=== PATIENT | male | born 1955 | race Caucasian/White ===

== ENCOUNTER → 2020-10-22 09:35 | Outpatient (CLI) | payer OTHER, SELFPAY ==
[2020-10-22 14:30] LABS: COVID19 -Nasal RAPID Negative (Negative)
== END ==
PROVIDERS: Visit Provider Physician Assistant
DX: Z20.822 Contact with and (suspected) exposure to COVID-19 (principal)
CPT/HCPCS: 87635

== ENCOUNTER 2020-10-25 06:26 | Day surgery (SDC) | payer OTHER, SELFPAY ==
[2020-10-25 07:01] VITALS: BP 105/61; PULSE 48; RESP 13; TEMP 36.5; O2SAT 99; BMI 22.9
[2020-10-25] MEDS: PROPARACAINE 0.5% OPHTH SOL 2 DROPS EYE-OP (07:30)
--- NOTE | 2020-10-25 07:37 | PM.PREOP ---
Pre-operative Note Interval Note History & Physical reviewed/Exam performed by Physician: Yes Changes to H&P: No
--- NOTE | 2020-10-25 07:37 | PM.OP.1 ---
Operative Date/Time/Diagnoses Pre-op diagnosis: Nuclear cataract right eye Procedure & Clinicians Procedure: Cataract Surgery Same procedure as scheduled: Yes Surgeon: Nathanael Medellin Anesthesia Type: MAC +/- and Sedation Operative Notes Procedure in detail: Patient brought to the operating suite. Tetracaine drops placed in the right eye. Marking instrument was used to jose f the vertical and horizontal meridians. Patient was prepped and draped in sterile manner. Wire lid speculum was placed in the eye. Betadine drops were placed on the eye. This was irrigated. Lidocaine jelly was placed on the eye. A paracentesis port was created with a side-port blade. 0.1 mL 1% preservative free lidocaine was injected into the anterior chamber. The anterior chamber was deepened with viscoelastic. 2.6 mm keratome was used to create a temporal clear corneal incision. Cystotome and Utrata forceps were used to create continuous tear capsulorrhexis. Balanced salt solution was used to hydro dissect the nucleus. The phacoemulsification handpiece was inserted and the nucleus was removed using the stop and chop technique. The irrigation aspiration handpiece was inserted and the remaining cortex was removed. Anterior chamber was deepened with viscoelastic. An Key [id number] intraocular lens with a power of 21.0 was injected into the capsular bag. Irrigation aspiration handpiece was inserted and the remaining viscoelastic was removed. The lens was rotated to the 180 degree meridian. Incision was hydrated with balanced salt solution and found to be leak free with pressure with Weck-Lynn sponges. 0.1 mL Vigamox injected anterior chamber. 0.3 mL Kenalog 10 mg was injected subconjunctivally. Lid speculum was removed. The patient left the operating room in excellent condition. Complications: none Post-operative Condition: stable Disposition: same day surgery
[2020-10-25] MEDS: CATARACT EYE COMPOUND (10 DROPS/SYRINGE) 3 DROPS EYE-OP (07:49)
[2020-10-25] MEDS: PHENYLEPHRINE/LIDOCAINE VIAL (OR) 0.2 ML EYE-OP (07:51)
[2020-10-25] MEDS: MOXIFLOXACIN INJ 5 MG/ML VIAL EYE-OP (07:52)
[2020-10-25] MEDS: CHONDROIDTIN/SOD HYALURONATE 1.05 ML SYRINGE INTRAOCULA (07:52)
[2020-10-25] MEDS: TRIAMCINOLONE 50 MG/5 ML VIAL INJ (07:52)
[2020-10-25] MEDS: LIDOCAINE JELLY 2% 5 ML 1 APPLIC TOP (07:53)
[2020-10-25] MEDS: BALANCED SALT IRRIG SOLN NO.2 500 ML, EPINEPHrine 1 MG IRR (07:54)
[2020-10-25] MEDS: TETRACAINE 0.5% OPHTH DROPS 4 ML 2 DROPS EYE-OP (07:54)
[2020-10-25 08:10] VITALS: BP 99/45; PULSE 60; RESP 13; TEMP 36.9; O2SAT 98
== END 2020-10-25 08:25 | disposition home or self-care (01) ==
PROVIDERS: Referring Provider Ophthalmology; Visit Provider Ophthalmology
PROC: (CPT 66984; principal; 2020-10-25 07:45)
DX: H25.11 Age-related nuclear cataract, right eye (principal); I10 Essential (primary) hypertension; F41.9 Anxiety disorder, unspecified
CPT/HCPCS: 66984; J0171; J2250; J3010; J3301; V2788

== ENCOUNTER → 2020-10-25 16:01 | Outpatient (CLI) | payer OTHER, SELFPAY ==
[2020-10-25] MEDS: COVID-19 VACC #1, MRNA(MOD) 100 MCG/0.5 ML VIAL IM (16:09)
== END ==
PROVIDERS: Visit Provider Internal Medicine
DX: Z23 Encounter for immunization (principal)
CPT/HCPCS: 0011A; 91301

== ENCOUNTER → 2020-11-12 09:04 | Outpatient (CLI) | payer OTHER, SELFPAY ==
[2020-11-12 11:27] LABS: COVID19 -Nasal RAPID Negative (Negative)
== END ==
PROVIDERS: Visit Provider Physician Assistant
DX: Z20.822 Contact with and (suspected) exposure to COVID-19 (principal)
CPT/HCPCS: 87635

== ENCOUNTER 2020-11-15 06:55 | Day surgery (SDC) | payer OTHER, SELFPAY ==
[2020-11-15 07:32] VITALS: BP 92/51; PULSE 51; RESP 13; TEMP 36.6; BMI 22.9
[2020-11-15] MEDS: CATARACT EYE COMPOUND (10 DROPS/SYRINGE) 3 DROPS EYE-OP (07:39)
[2020-11-15] MEDS: PROPARACAINE 0.5% OPHTH SOL 2 DROPS EYE-OP (07:40)
[2020-11-15 07:42] VITALS: BP 90/49
--- NOTE | 2020-11-15 08:29 | P.OP_ITS ---
Operative Date/Time/Diagnoses Pre-op diagnosis: Nuclear Cataract Left eye Post-op diagnosis: same Procedure & Clinicians Same procedure as scheduled: Yes Surgeon: Nathanael Medellin Anesthesia Type: MAC +/- and Sedation Operative Notes Procedure in detail: Patient brought to the operating suite. Tetracaine drops placed in the left eye. Patient was prepped and draped in sterile manner. Wire lid speculum was placed in the eye. Betadine drops were placed on the eye. This was irrigated. Lidocaine jelly was placed on the eye. A paracentesis port was created with a side-port blade. 0.1 mL 1% preservative free lidocaine was injected into the anterior chamber. The anterior chamber was deepened with viscoelastic. 2.6 mm keratome was used to create a temporal clear corneal incision. Cystotome and Utrata forceps were used to create continuous tear capsulorrhexis. Balanced salt solution was used to hydro dissect the nucleus. The phacoemulsification handpiece was inserted and the nucleus was removed using the stop and chop technique. The irrigation aspiration handpiece was inserted and the remaining cortex was removed. Anterior chamber was deepened with viscoe lastic. An Key [id number] intraocular lens with a power of 21.5 was injected into the capsular bag. Irrigation aspiration handpiece was inserted and the remaining viscoelastic was removed. Incision was hydrated with balanced salt solution and found to be leak free with pressure with Weck-Lnyn sponges. 0.1 mL Vigamox injected anterior chamber. 0.3 mL Kenalog 10 mg was injected subconjunctivally. Lid speculum was removed. The patient left the operating room in excellent condition. Complications: none Post-operative Condition: stable Disposition: same day surgery
--- NOTE | 2020-11-15 08:29 | PM.PREOP ---
Pre-operative Note Interval Note History & Physical reviewed/Exam performed by Physician: Yes Changes to H&P: No
[2020-11-15] MEDS: LIDOCAINE 2% (GLYDO) 6 ML GEL TOP (08:40)
[2020-11-15] MEDS: CHONDROIDTIN/SOD HYALURONATE 1.05 ML SYRINGE INTRAOCULA (08:40)
[2020-11-15] MEDS: MOXIFLOXACIN INJ 4 MG/0.8 ML VIAL 0.5 MG EYE-OP (08:40)
[2020-11-15] MEDS: TETRACAINE 0.5% OPHTH DROPS 4 ML 2 DROPS EYE-OP (08:41)
[2020-11-15] MEDS: PHENYLEPHRINE/LIDOCAINE VIAL (OR) 0.2 ML EYE-OP (08:41)
[2020-11-15] MEDS: TRIAMCINOLONE 50 MG/5 ML VIAL INJ (08:41)
[2020-11-15] MEDS: BALANCED SALT IRRIG SOLN NO.2 500 ML, EPINEPHrine 1 MG IRR (08:42)
[2020-11-15 09:05] VITALS: BP 101/50; PULSE 47; RESP 12; TEMP 36.3; O2SAT 100
== END 2020-11-15 09:10 | disposition home or self-care (01) ==
PROVIDERS: PCP Family Medicine; Referring Provider Family Medicine; Visit Provider Ophthalmology
PROC: (CPT 66984; principal; 2020-11-15 08:45)
DX: H25.12 Age-related nuclear cataract, left eye (principal); I10 Essential (primary) hypertension; E78.00 Pure hypercholesterolemia, unspecified; F41.9 Anxiety disorder, unspecified
CPT/HCPCS: 66984; J0171; J2250; J3301; V2788

== ENCOUNTER → 2020-11-23 13:36 | Outpatient (CLI) | payer OTHER, SELFPAY ==
[2020-11-23] MEDS: COVID-19 VACC #2, MRNA(MOD) 100 MCG/0.5 ML VIAL IM (13:42)
== END ==
PROVIDERS: PCP Family Medicine; Visit Provider Internal Medicine
DX: Z23 Encounter for immunization (principal)
CPT/HCPCS: 0012A; 91301

== ENCOUNTER → 2022-05-15 10:44 | Outpatient (CLI) | payer OTHER, SELFPAY ==
--- NOTE | 2022-05-15 | DI.RAD.S_ITS ---
PROCEDURE: FL JOINT INJECTION LARGE LT INDICATIONS: Pain in left hip COMPARISON: None. TECHNIQUE: The indications, alternatives, benefits, risks, and complications of the procedure were explained to the patient. Written informed consent was obtained and placed in the chart. The patient was placed in an appropriate position on the fluoroscopy table, and a site was chosen for percutaneous access under fluoroscopic guidance. The site was prepped and draped in a sterile fashion. Local anesthetic was administered using a 1% lidocaine solution. A hypodermic or spinal needle was then used to access the symptomatic joint. Intra-articular location of the needle tip was confirmed by injecting a small amount of contrast, followed by steroid administration. The needle was then withdrawn, and a bandage applied to the puncture site. FINDINGS: Joint injected: Left hip Medications injected: 4 mL of 40 mg/mL Kenalog and 0.5% Ropivacaine mixture. Patient's pain before injection: 3 out of 10. Patient's pain after injection: 1 out of 10. Complications: None. IMPRESSION: Successful fluoroscopically guided administration of steroid and anaesthetic solution into the left hip joint. Dictated by: Fer Willoughby M.D. on 05/15/2022 at 16:12 Approved by: Fer Willoughby M.D. on 05/15/2022 at 16:13
== END ==
PROVIDERS: PCP Family Medicine; Referring Provider Family Medicine; Visit Provider Family Medicine
DX: M25.552 Pain in left hip (principal)
CPT/HCPCS: 20610

== ENCOUNTER 2025-03-14 12:34 | Observation (INO) | payer MEDICARE, OTHER, SELFPAY ==
[2025-03-14] VITALS (31 sets, daily range): BP systolic 103–155; BP diastolic 59–105; PULSE 59–165; RESP 11–24; TEMP 36.1–37.1; O2SAT 96–99; BMI 23.7
--- NOTE | 2025-03-14 12:46 | EKG_ITS ---
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
--- NOTE | 2025-03-14 12:46 | DI.RAD.S_ITS ---
PROCEDURE: XR CHEST 1V INDICATIONS: a fib TECHNIQUE: One view of the chest was acquired. COMPARISON: None. FINDINGS: Surgical changes and devices: None. Lungs and pleura: Lungs are clear. No pleural effusions or pneumothorax. Mediastinum: Mediastinal contours appear normal. Heart size is normal. Bones and chest wall: No suspicious bony lesions. Overlying soft tissues appear unremarkable. IMPRESSION: No acute cardiopulmonary pathology. Dictated by: Anibal Hewitt M.D. on 03/14/2025 at 13:20 Approved by: Anibal Hewitt M.D. on 03/14/2025 at 13:20
--- NOTE | 2025-03-14 12:47 | ED.ARRPALP ---
HPI - Arrhythmia/Palpitations General Chief Complaint: Arrhythmia/Palpitations Stated Complaint: AFIB Time Seen by Provider: 03/14/25 12:39 Source: patient Mode of arrival: Ambulatory History of Present Illness HPI narrative: 69-year-old gentleman with history of AV node reentry tachycardia and atrial fibrillation post cardiac ablation in 2016, hypertension, hyperlipidemia has been doing well since 2017 and today notes that for the last 3 hours he has been having an irregular heartbeat up to 140 beats per minute with a sense of dizziness and jumping in his heart. He has been otherwise feeling well. He is scheduled for a ?full cardiac workup at the [facility] planning to fly to the clinic this Saturday. His brother of sudden cardiac arrest on August 05, he saw his primary care after that with a stress test ordered to help stratify his risk stratification. He ?failed that?. 2023 he had a low-dose CT scan of his chest for lung cancer screening and there was a mention of multiple coronary calcium appreciated on the CT scan. 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 Follow up was recommended. He preferred to be referred to the [facility] found that they are waiting list was extensive and is now planning to be seen in the [facility]. Aside from the 3 hours of symptoms today he has been otherwise well Related Data Home Medications ?Medication ?Instructions ?Recorded ?Confirmed hydrochlorothiazide 25 mg tablet 25 mg PO DAILY 10/25/20 11/15/20 losartan 50 mg tablet 50 mg PO DAILY 10/25/20 11/15/20 propranolol 80 mg capsule,24 80 mg PO DAILY 10/25/20 11/15/20 hr,extended release simvastatin 20 mg tablet 20 mg PO DAILY 10/25/20 11/15/20 trazodone 100 mg tablet 100 mg PO DAILY 10/25/20 11/15/20 venlafaxine 75 mg capsule,extended 75 mg PO DAILY 10/25/20 11/15/20 release 24 hr Allergies Allergy/AdvReac Type Severity Reaction Status Date / Time meperidine Allergy Unknown Verified 11/15/20 07:31 Penicillins Allergy Unknown Verified 11/15/20 07:31 Review of Systems Review of Systems Narrative: Pertinent positive and negative findings as per HPI Patient History Social History household members: spouse alcohol intake: never Smoking Status: Never smoker Exam Initial Vital Signs Initial Vital Signs: Vital Signs Temperature 97 F L 03/14/25 12:37 Pulse Rate 60 03/14/25 12:37 Respiratory Rate 20 03/14/25 12:37 Blood Pressure 113/62 03/14/25 12:37 Pulse Oximetry 98 03/14/25 12:37 Oxygen Delivery Method Room Air 03/14/25 12:37 General: Healthy appearing, in no acute distress. Able to give a complete and coherent history. Well-nourished well-developed HEENT: Moist mucous membranes, normal sclera with reactive pupils, Respiratory: Full and symmetrical air movement Cardiac: Regular rate and rhythm , variable irregularities on telemetry we will continue to monitor Skin: Warm and dry, no rashes Neurologic: Grossly neurologically intact with no obvious asymmetries or abnormalities Extremities: No trauma, no lower extremity edema Psych: Cooperative, appropriate insight and affect Course Orders Ordered: ED Orders 03/14/25 12:45 Complete Blood Count AUTO DIFF Stat Comprehensive Metabolic Panel Stat 03/14/25 12:46 XR chest 1V Stat Magnesium Stat NT-proBNP (BNP-Adult 18+) Stat Troponin I Stat EKG-12 Lead Stat 03/14/25 12:58 EKG-12 Lead Routine 03/14/25 13:00 EKG-12 Lead Routine 03/14/25 15:58 Trop I [Troponin I] Stat 03/14/25 16:08 Consult to Cardiology Stat Amiodarone HCl/Dextrose (Nexterone) 360 mg in 200 mls @ 33.333 mls/hr IV NOW ONE; Protocol Stop: 03/14/25 19:13 Last Admin: 03/14/25 13:44 Dose: 33.333 mls/hr, 33.33 mls/hr Discontinued Medications Apixaban (Apixaban 5 Mg Tablet) 10 mg PO NOW ONE Stop: 03/14/25 15:41 Last Admin: 03/14/25 15:59 Dose: 10 mg Amiodarone HCl/Dextrose (Nexterone) 150 mg in 100 mls @ 600 mls/hr IV NOW ONE; Protocol Stop: 03/14/25 13:22 Last Infusion: 03/14/25 13:39 Dose: Infused Vital Signs Vital signs: Vital Signs - 8 hr 03/14/25 12:37 03/14/25 12:55 03/14/25 13:04 Temperature 97 F L Pulse Rate 60 157 H Respiratory Rate 20 12 Blood Pressure 113/62 116/71 Pulse Oximetry 98 97 Oxygen Delivery Method Room Air 03/14/25 13:05 03/14/25 13:05 03/14/25 13:11 Temperature Pulse Rate 165 H 156 H Respiratory Rate 13 16 Blood Pressure 121/71 Pulse Oximetry 97 96 Oxygen Delivery Method 03/14/25 13:11 03/14/25 13:16 03/14/25 13:16 Temperature Pulse Rate 148 H Respiratory Rate 14 Blood Pressure 109/79 131/68 Pulse Oximetry 97 Oxygen Delivery Method 03/14/25 13:30 03/14/25 13:32 03/14/25 13:32 Temperature Pulse Rate 143 H 123 H Respiratory Rate 12 15 Blood Pressure 113/76 113/76 Pulse Oximetry 98 98 Oxygen Delivery Method Room Air 03/14/25 13:45 03/14/25 13:46 03/14/25 13:46 Temperature Pulse Rate 132 H 125 H Respiratory Rate 20 17 Blood Pressure 155/79 H Pulse Oximetry 98 98 Oxygen Delivery Method 03/14/25 14:00 03/14/25 14:00 03/14/25 14:15 Temperature Pulse Rate 143 H 130 H Respiratory Rate 16 20 Blood Pressure 109/67 Pulse Oximetry 97 98 Oxygen Delivery Method Room Air 03/14/25 14:16 03/14/25 14:16 03/14/25 14:30 Temperature Pulse Rate 134 H 160 H Respiratory Rate 14 22 Blood Pressure 143/80 H Pulse Oximetry 98 97 Oxygen Delivery Method 03/14/25 14:31 03/14/25 14:31 03/14/25 14:45 Temperature Pulse Rate 151 H 67 Respiratory Rate 22 Blood Pressure 153/105 H Pulse Oximetry 97 98 Oxygen Delivery Method Room Air 03/14/25 14:46 03/14/25 14:46 03/14/25 15:00 Temperature Pulse Rate 69 65 Respiratory Rate 12 Blood Pressure 126/68 Pulse Oximetry 97 97 Oxygen Delivery Method 03/14/25 15:00 Temperature Pulse Rate Respiratory Rate Blood Pressure 111/62 Pulse Oximetry Oxygen Delivery Method MDM - Arrhythmia/Palpitations Lab Data 03/14/25 12:56 03/14/25 12:56 Labs: Lab Results 03/14/25 Range/Units 12:56 WBC 6.5 (4.5-11.0) X10^3/uL RBC 4.31 L (4.5-5.9) X10^6/uL Hgb 13.9 (13.5-17.5) g/dL Hct 39.0 L (41-53) % MCV 90.7 (80-100) fL MCH 32.2 (26-34) PG MCHC 35.5 (30-36) % RDW 13.5 (11.6-14.8) % Plt Count 186 (150-400) X10^3/uL Neut % (Auto) 70.4 (50-75) % Lymph % (Auto) 18.6 L (25-40) % [place] % (Auto) 9.1 (3-14) % Eos % (Auto) 1.3 L (2-4) % Baso % (Auto) 0.6 (0-2) % Neut # (Auto) 4600 (3664-4458) /uL Lymph # (Auto) 1200 (4614-3504) /uL [place] # (Auto) 600 (0-900) /uL Eos # (Auto) 100 (0-450) /uL Baso # (Auto) 0 (0-100) /uL Sodium 138 (137-145) mmol/L Potassium 3.8 (3.4-5.1) mmol/L Chloride 99 (98-107) mmol/L Carbon Dioxide 29 (22-32) mmol/L BUN 14 (9-20) mg/dL Creatinine 0.80 (0.66-1.25) mg/dL Estimated GFR > 60 (>60) mL/min BUN/Creatinine Ratio 17.5 (6-22) Glucose 138 H (70-99) mg/dL Calcium 9.2 (8.4-10.2) mg/dL Magnesium 1.7 (1.6-2.3) mg/dL Total Bilirubin 0.7 (0.2-1.3) mg/dL AST 29 (17-59) IU/L ALT 19 (<50) IU/L Alkaline Phosphatase 42 (38-126) U/L Troponin I < 0.012 (0.01-0.034) ng/mL NT-Pro-B Natriuret Pep 306 H (<125) pg/mL Total Protein 7.5 (6.3-8.2) g/dL Albumin 4.6 (3.5-5.0) g/dL Globulin 2.9 (1.7-4.1) g/dL Albumin/Globulin Ratio 1.6 (1.0-2.8) MDM Narrative Medical decision making narrative: CC: Palpitations x3 hours, cardiac ablation 2017 for atrial fibrillation has had no palpitations since 2017 Complicating co-morbidities: Abnormal stress test in September of this year, coronary calcium appreciated on CT scan from almost a year ago, cardiac evaluation at the [facility] scheduled within the next week Data collected from: patient, son Medical records reviewed: Notes from [facility] are reviewed Differential considered: Paroxysmal AFib, electrolyte abnormality, anxiety, acute coronary syndrome, low risk for pulmonary embolism, electrolyte abnormalities Exam documented above, pertinent findings include: Exam is benign and he is at a rate of 90 Lab Test results independently reviewed as above. Pertinent findings: CBC is unremarkable Chemistries are reassuring Magnesium is appropriate Troponin is ended up BNP is minimally elevated at 306 Independently reviewed EKG: Initial EKG in triage shows sinus rhythm at a rate of 90 with a left bundle branch block. Comparison to EKG in October of this year at [facility] shows he had a baseline left bundle at that point as well At 1:00 p.m. he had an acute rhythm change complains of palpitations but no pain. Of EKG shows wide complex undetermined rhythm ranging from 140-180. Imaging studies independently reviewed: Chest x-ray is unremarkable Consultations: Discussion with Dr Seth regarding rhythm controlling rest of his workup. Agrees with starting amiodarone and continue workup is planned. Discussed with Aleja Encinas, hospitalist. Agrees to hospital admission. Discussed with for inpatient consult. He will see the patient in the morning his recommendation is actually to switch him to 400 mg of amiodarone orally as he has already converted and go ahead and discontinue the drip at this time. Agrees with the apixaban. Recommends echocardiogram in the morning Treatments: amiodorone bolus and drip Re-evaluations: 1300 patient is re-evaluated while in his wide rapid rhythm he is alert, complaining of palpitations but no pain left pressure is stable. 230pm cardioverted to sinus rhythm with amiodarone Discussion: 69-year-old gentleman with episodes of atrial fibrillation, left bundle branch with rapid ventricular response in and out over the course of today. He converted medically with amiodarone. We will convert him to oral amiodarone, start apixaban, we will admit him to the hospital overnight. Currently no evidence of elevated troponin or acute coronary syndrome. Cardiology will consult in the morning did recommend echocardiogram. Patient is updated. Care is reviewed with the hospitalist and all are in agreement with current plan. Discharge Plan Departure Patient Disposition: Admitted as Observation Clinical Impression: Atrial fibrillation with rapid ventricular response
--- NOTE | 2025-03-14 12:58 | EKG_ITS ---
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
--- NOTE | 2025-03-14 13:00 | EKG_ITS ---
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
[2025-03-14 13:05] LABS: Add Manual Diff / Slide Review NO; Hematocrit 39.0 % (41-53); Hemoglobin 13.9 g/dL (13.5-17.5); Lymphocytes Absolute Auto 1200 /uL (1100-4500); Mean Corpuscular HGB Conc 35.5 % (30-36); Mean Corpuscular Hemoglobin 32.2 PG (26-34); Mean Corpuscular Volume 90.7 fL (80-100); Platelet Count 186 X10^3/uL (150-400)
--- NOTE | 2025-03-14 13:15 | PC.NURSE ---
1246 Pt arrived to ED due to heart palpitations and rapid heart rate intermittently x3 hours. Hx of afib and ablation in 2017. States that he is scheduled to have full cardiac workup at [facility] in [place] on 03/18. Denies cp and sob. But states that he feels dizzy with ambulation or movement. VS stable. A&Ox4.
--- NOTE | 2025-03-14 13:18 | PC.NURSE ---
1300 Pt c/o 5/10 substernal cp with rapid HR of 160s. Dr Padron notified of pt status & at bedside. Repeat EKG done.
[2025-03-14] MEDS: AMIODARONE 150 MG/100 ML PIGGYBACK 600 MG IV (13:22)
[2025-03-14 13:23] LABS: Alanine Aminotransferase 19 IU/L (<50); Albumin 4.6 g/dL (3.5-5.0); Albumin Globulin Ratio 1.6 (1.0-2.8); Alkaline Phosphatase 42 U/L (38-126); Blood Urea Nitrogen 14 mg/dL (9-20); Calcium 9.2 mg/dL (8.4-10.2); Carbon Dioxide 29 mmol/L (22-32); Chloride 99 mmol/L (98-107); Estimated Glomerular Filt Rate > 60 mL/min (>60); Globulin 2.9 g/dL (1.7-4.1); Glucose 138 mg/dL (70-99); HEMOLYSIS < 15 (0-50); Magnesium 1.7 mg/dL (1.6-2.3); Potassium 3.8 mmol/L (3.4-5.1); Sodium 138 mmol/L (137-145); Total Protein 7.5 g/dL (6.3-8.2)
[2025-03-14 13:34] LABS: NT-proBNP (BNP-Adult 18+) 306 pg/mL (<125); Troponin I < 0.012 ng/mL (0.01-0.034)
[2025-03-14] MEDS: AMIODARONE 360 MG/200 ML PIGGYBACK 33.33 MG IV (13:44)
[2025-03-14] MEDS: APIXABAN 5 MG TABLET 10 MG PO (15:59)
[2025-03-14 16:29] LABS: Troponin I 0.022 ng/mL (0.01-0.034)
--- NOTE | 2025-03-14 17:50 | P.HP_ITS ---
History of Present Illness History of Present Illness Date Patient Seen: 03/14/25 Time Patient Seen: 17:50 Chief complaint: AFIB Narrative: Patient was a 69-year-old male with a history of reentrant tachycardia and AFib. He had a cardiac ablation in [address] [facility] [address] Vázquez. He was not been back since that time. He was developed what sounds like paroxysmal atrial fibrillation beginning in August of this year. He also has history of hypertension and hyperlipidemia. He presented with palpitations today for 3 hours and was found to have atrial fibrillation with RVR. He was started on amiodarone ultimately did convert to sinus rhythm. Unfortunately his QTC is quite prolonged at 562. He also notes coronary calcifications and a screening lung CT as well as a failed stress test in the last year. He was scheduled to fly to [place] on Saturday for a full cardiac evaluation this week. We discussed the pros and cons of anticoagulation, and given that he has been dealing with this for at least a half year and that there is a high probability of coronary angiogram later this week in [place], we concluded with him strongly supporting stopping anticoagulation at this point. He was in agreement with simple beta blockade to alleviate the risk of recurrent tachycardia. I spoke with Dr. Craig regarding his clinical situation, anticoagulation issues, as well as QTC. His magnesium was 1.7, this will be repleted tonight with a repeat magnesium and ECG in the morning. [facility], [facility] Social History household members: spouse Smoking Status: Never smoker alcohol intake: never Meds Home Medications and Allergies Home Medications ?Medication ?Instructions ?Recorded ?Confirmed ?Type hydrochlorothiazide 25 mg tablet 25 mg PO DAILY 11/15/20 History losartan 50 mg tablet 50 mg PO DAILY 10/25/2011/03 History propranolol 80 mg capsule,24 80 mg PO DAILY 10/25/20 0 11/15/20 History hr,extended release simvastatin 20 mg tablet 20 mg PO DAILY 10/25/2011/03 History trazodone 100 mg tablet 100 mg PO DAILY 10/25/20 History venlafaxine 75 mg capsule,extended 75 mg PO DAILY 10/0411/15/20 History release 24 hr Allergies Allergy/AdvReac Type Severity Reaction Status Date / Time meperidine Allergy Unknown Verified 11/15/20 07:31 Penicillins Allergy Unknown Verified 11/15/20 07:31 Review of Systems Review of Systems Narrative: All else reviewed and otherwise unremarkable except as noted in the history and physical. Exam Vital Signs (past 8 hours): - 03/14/25 12:37 03/14/25 12:55 03/14/25 13:04 Temperature 97 F L Pulse Rate 60 157 H Respiratory Rate 20 12 Blood Pressure 113/62 116/71 Pulse Oximetry 98 97 Oxygen Delivery Method Room Air 03/14/25 13:05 03/14/25 13:05 03/14/25 13:11 Temperature Pulse Rate 165 H 156 H Respiratory Rate 13 16 Blood Pressure 121/71 Pulse Oximetry 97 96 Oxygen Delivery Method 03/14/25 13:11 03/14/25 13:16 03/14/25 13:16 Temperature Pulse Rate 148 H Respiratory Rate 14 Blood Pressure 109/79 131/68 Pulse Oximetry 97 Oxygen Delivery Method 03/14/25 13:30 03/14/25 13:32 03/14/25 13:32 Temperature Pulse Rate 143 H 123 H Respiratory Rate 12 15 Blood Pressure 113/76 113/76 Pulse Oximetry 98 98 Oxygen Delivery Method Room Air 03/14/25 13:45 03/14/25 13:46 03/14/25 13:46 Temperature Pulse Rate 132 H 125 H Respiratory Rate 20 17 Blood Pressure 155/79 H Pulse Oximetry 98 98 Oxygen Delivery Method 03/14/25 14:00 03/14/25 14:00 03/14/25 14:15 Temperature Pulse Rate 143 H 130 H Respiratory Rate 16 20 Blood Pressure 109/67 Pulse Oximetry 97 98 Oxygen Delivery Method Room Air 03/14/25 14:16 03/14/25 14:16 03/14/25 14:30 Temperature Pulse Rate 134 H 160 H Respiratory Rate 14 22 Blood Pressure 143/80 H Pulse Oximetry 98 97 Oxygen Delivery Method 03/14/25 14:31 03/14/25 14:31 03/14/25 14:45 Temperature Pulse Rate 151 H 67 Respiratory Rate 22 Blood Pressure 153/105 H Pulse Oximetry 97 98 Oxygen Delivery Method Room Air 03/14/25 14:46 03/14/25 14:46 03/14/25 15:00 Temperature Pulse Rate 69 65 Respiratory Rate 12 Blood Pressure 126/68 Pulse Oximetry 97 97 Oxygen Delivery Method 03/14/25 15:00 03/14/25 15:15 03/14/25 15:15 Temperature Pulse Rate 66 Respiratory Rate Blood Pressure 111/62 116/63 Pulse Oximetry 98 Oxygen Delivery Method 03/14/25 15:30 03/14/25 15:30 03/14/25 15:45 Temperature Pulse Rate 63 64 Respiratory Rate 12 13 Blood Pressure 114/62 Pulse Oximetry 97 97 Oxygen Delivery Method Room Air 03/14/25 15:45 03/14/25 16:00 03/14/25 16:00 Temperature Pulse Rate 62 Respiratory Rate 15 Blood Pressure 119/67 109/62 Pulse Oximetry 98 Oxygen Delivery Method 03/14/25 16:15 03/14/25 16:15 03/14/25 16:30 Temperature Pulse Rate 61 59 L Respiratory Rate 15 14 Blood Pressure 123/68 Pulse Oximetry 98 98 Oxygen Delivery Method 03/14/25 16:30 03/14/25 16:30 Temperature Pulse Rate Respiratory Rate Blood Pressure 123/71 Pulse Oximetry Oxygen Delivery Method Room Air Oxygen Delivery Method Room Air Narrative Exam Narrative: NAD, alert and oriented, fluent speech, calm. Normocephalic skull, EOMI, anicteric sclera, symmetric pupils. Oropharynx unremarkable, no droop. Neck supple, midline trachea, no adenopathy. Lungs clear, normal rate and effort. Heart regular, no murmur gallop or rub. Abdomen is soft, non distended and non tender. Extremities are free of edema. Skin is free of rash or lesions. Joints are not swollen or deformed. Judgment appears to be normal. Objective ECG Impression: Intervals [place] Rate: 157 P: ID: 152 QRS: -32 QRSD: 138 T: 144 QT: 348 QTc: 562 Interpretive Statements Critical Test Result: High HR Sinus tachycardia with premature supraventricular complexes and with occasional premature ventricular complexes Left axis deviation Left bundle branch block Imaging Chest x-ray: Radiologist's impression: No acute cardiopulmonary pathology. Labs 03/14/25 12:56 03/14/25 12:56 Labs: Laboratory Results - last 24 hr 03/14/25 03/14/25 12:56 15:58 WBC 6.5 RBC 4.31 L Hgb 13.9 Hct 39.0 L MCV 90.7 MCH 32.2 MCHC 35.5 RDW 13.5 Plt Count 186 Neut % (Auto) 70.4 Lymph % (Auto) 18.6 L [place] % (Auto) 9.1 Eos % (Auto) 1.3 L Baso % (Auto) 0.6 Neut # (Auto) 4600 Lymph # (Auto) 1200 [place] # (Auto) 600 Eos # (Auto) 100 Baso # (Auto) 0 Sodium 138 Potassium 3.8 Chloride 99 Carbon Dioxide 29 BUN 14 Creatinine 0.80 Estimated GFR > 60 BUN/Creatinine Ratio 17.5 Glucose 138 H Calcium 9.2 Magnesium 1.7 Total Bilirubin 0.7 AST 29 ALT 19 Alkaline Phosphatase 42 Troponin I < 0.012 0.022 NT-Pro-B Natriuret Pep 306 H Total Protein 7.5 Albumin 4.6 Globulin 2.9 Albumin/Globulin Ratio 1.6 Assessment & Plan Assessment & Plan narrative: 1. Atrial fibrillation with RVR, resolved. 2. Long QTC. 3. Hypomagnesemia. 4. Hypertension, stable. 5. Hyperlipidemia, stable. 6. Coronary calcifications on CT with an impending trip to [facility] in [place] this week for full cardiology evaluation. PLAN: -magnesium 2 g IV now -stopped amiodarone -metoprolol 12.5 Q 8 hours -repeat ECG in the a.m. -cardiology will see him in the morning and evaluate his ECG and repeat magnesium as well. -no Eliquis at this time, after discussing the pros and cons of anticoagulation with the patient and his high likelihood of coronary angiogram later this week. In addition, his risk of not being anticoagulated for 2 additional days compared to the last 8 months that he was had PAF is very small. Full code is proxy Anticipate 1 midnight in the hospital, supports observation status. Time-Based Coding :: 35 min spent with patient and on the chart (including review of chart, obtaining history, exam, reviewing outside data, placing orders, documenting exam and treatment plan, and counseling patient) on 03/14. Quality MIPS - Admit I confirm the patient?s Advance Care Plan is present, Code status is documented, Surrogate decision maker is in patient?s record [If Yes, STOP here]: Yes MIPS - Meds 'Current medications' to include all prescriptions, [id number] products, herbals, cannabis/cannabidiol products, and vitamin/mineral/dietary (nutritional) supplements. I have utilized all available resources to obtain, update, or review the patient?s current medications. [If Yes, STOP here]: Yes
[2025-03-14] MEDS: MAGNESIUM SULFATE 2 GM/50 ML PIGGYBACK IV (18:03)
[2025-03-14 19:29] LABS: MRSA (Nasal) PCR NOT DETECTED (Not Detect)
[2025-03-14] MEDS: TRAZODONE 50 MG TABLET 100 MG PO (21:09)
[2025-03-15] VITALS (14 sets, daily range): BP systolic 119–135; BP diastolic 57–64; PULSE 54–68; RESP 9–19; TEMP 36.6; O2SAT 95–98
[2025-03-15 05:35] LABS: Add Manual Diff / Slide Review NO; Hematocrit 34.3 % (41-53); Hemoglobin 12.3 g/dL (13.5-17.5); Lymphocytes Absolute Auto 1700 /uL (1100-4500); Mean Corpuscular HGB Conc 35.9 % (30-36); Mean Corpuscular Hemoglobin 32.8 PG (26-34); Mean Corpuscular Volume 91.3 fL (80-100); Platelet Count 129 X10^3/uL (150-400)
[2025-03-15 05:53] LABS: Blood Urea Nitrogen 12 mg/dL (9-20); Calcium 8.4 mg/dL (8.4-10.2); Carbon Dioxide 29 mmol/L (22-32); Chloride 103 mmol/L (98-107); Estimated Glomerular Filt Rate > 60 mL/min (>60); Glucose 96 mg/dL (70-99); HEMOLYSIS < 15 (0-50); Potassium 3.6 mmol/L (3.4-5.1); Sodium 138 mmol/L (137-145)
--- NOTE | 2025-03-15 06:38 | PC.NURSE ---
pt slept well overnight, denies pain, SB with 1st degree AVB/BBB with prolong QT, VSS, afebrile, O2 sats >92% on RA, call alanis within reach, care ongoing
[2025-03-15 06:54] LABS: Magnesium 2.1 mg/dL (1.6-2.3)
--- NOTE | 2025-03-15 08:15 | P.CONS_ITS ---
History of Present Illness Consult details Date Patient Seen: 03/15/25 Time Patient Seen: 08:15 Chief complaint: AFIB Reason for consult: PAF Narrative: This is a 70-year-old male with past medical history of hypertension, paroxysmal atrial fibrillation status post ablation in 2016, history of coronary artery disease on a recent lung cancer screening scan. 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 In July of 2024 his elder brother from sudden cardiac . He followed with his PCP regarding his care and was subsequently advised a low-dose CT for screening. He stated that last few months that he has been having intermittent episodes of paroxysmal atrial fibrillation with no associated symptoms. He made an appointment at [facility] however his appointment was canceled and rescheduled for April. He got frustrated and made an appointment at [facility]. He is scheduled to fly to [place] day after tomorrow for his cardiac evaluation. Patient was seen in the emergency room for paroxysmal atrial fibrillation. He was given IV amiodarone. He was hemodynamically stable however there was an incidental finding of prolonged QT of 562 milliseconds when corrected for his heart rate. Patient was admitted to the hospital. I worked with the hospitalist Dr. Gregorio Encinas and noted that he had low magnesium levels of 1.7. Magnesium was replaced with IV riders. In the middle of the night he converted to sinus rhythm and has been maintaining sinus rhythm. His amiodarone was withdrawn. The follow-up EKG demonstrated corrected QT interval of 518 milliseconds. I personally spoke to Mr. Shepherd in detail history was obtained. At the time of evaluation he reported no symptoms of chest pain shortness of breath orthopnea PND presyncope or syncope. No reported episodes of palpitations since last night. He is lying very comfortably in bed. Meds Home Medications and Allergies Home Medications ?Medication ?Instructions ?Recorded ?Confirmed ?Type hydrochlorothiazide 25 mg tablet 25 mg PO DAILY 11/15/20 History losartan 50 mg tablet 50 mg PO DAILY 10/25/2011/03 History propranolol 80 mg capsule,24 80 mg PO DAILY 10/25/20 0 11/15/20 History hr,extended release simvastatin 20 mg tablet 20 mg PO DAILY 10/25/2011/03 History trazodone 100 mg tablet 100 mg PO DAILY 10/25/20 History venlafaxine 75 mg capsule,extended 75 mg PO DAILY 10/0411/15/20 History release 24 hr Allergies Allergy/AdvReac Type Severity Reaction Status Date / Time meperidine Allergy Unknown Verified 11/15/20 07:31 Penicillins Allergy Unknown Verified 11/15/20 07:31 Exam Vital Signs (past 8 hours): - 03/15/25 04:00 Temperature 98 F Pulse Rate 54 L Respiratory Rate 16 Blood Pressure 119/57 L Pulse Oximetry 98 Oxygen Flow Rate 0 Oxygen Delivery Method Room Air Oxygen Flow Rate 0 Objective Labs 03/15/25 04:43 03/15/25 04:43 Labs: Laboratory Results - last 24 hr 03/14/25 03/14/25 03/14/25 12:56 15:58 17:35 WBC 6.5 RBC 4.31 L Hgb 13.9 Hct 39.0 L MCV 90.7 MCH 32.2 MCHC 35.5 RDW 13.5 Plt Count 186 Neut % (Auto) 70.4 Lymph % (Auto) 18.6 L [place] % (Auto) 9.1 Eos % (Auto) 1.3 L Baso % (Auto) 0.6 Neut # (Auto) 4600 Lymph # (Auto) 1200 [place] # (Auto) 600 Eos # (Auto) 100 Baso # (Auto) 0 Sodium 138 Potassium 3.8 Chloride 99 Carbon Dioxide 29 BUN 14 Creatinine 0.80 Estimated GFR > 60 BUN/Creatinine Ratio 17.5 Glucose 138 H Calcium 9.2 Magnesium 1.7 Total Bilirubin 0.7 AST 29 ALT 19 Alkaline Phosphatase 42 Troponin I < 0.012 0.022 NT-Pro-B Natriuret Pep 306 H Total Protein 7.5 Albumin 4.6 Globulin 2.9 Albumin/Globulin Ratio 1.6 Nasal Screen MRSA (PCR) Not detected 03/15/25 04:43 WBC 5.3 RBC 3.76 L Hgb 12.3 L Hct 34.3 L MCV 91.3 MCH 32.8 MCHC 35.9 RDW 13.6 Plt Count 129 L Neut % (Auto) 54.5 Lymph % (Auto) 32.1 [place] % (Auto) 11.1 Eos % (Auto) 2.0 Baso % (Auto) 0.3 Neut # (Auto) 2900 Lymph # (Auto) 1700 [place] # (Auto) 600 Eos # (Auto) 100 Baso # (Auto) 0 Sodium 138 Potassium 3.6 Chloride 103 Carbon Dioxide 29 BUN 12 Creatinine 0.70 Estimated GFR > 60 BUN/Creatinine Ratio 17.1 Glucose 96 Calcium 8.4 Magnesium 2.1 Total Bilirubin AST ALT Alkaline Phosphatase Troponin I NT-Pro-B Natriuret Pep Total Protein Albumin Globulin Albumin/Globulin Ratio Nasal Screen MRSA (PCR) [facility] Comment: PVI at [facility] 2017 Social History household members: spouse Tobacco & Substance Use Smoking Status: Never smoker alcohol intake: never Assessment & Plan Time-Based Coding :: [TOTAL MINUTES] spent with patient and on the chart (including review of chart, obtaining history, exam, reviewing outside data, placing orders, documenting exam and treatment plan, and counseling patient) on [DATE].
--- NOTE | 2025-03-15 08:23 | PM.CN ---
History of Present Illness Consult details Date Patient Seen: 03/15/25 Time Patient Seen: 08:35 Chief complaint: AFIB Reason for consult: Atrial fibrillation with RVR and Long QT interval Requesting provider: Gregorio Encinas Narrative: 70-year-old male with known history of hypertension, hyperlipidemia, paroxysmal atrial fibrillation, status post pulmonary vein isolation 2016, coronary artery disease, LBBB admitted to the hospital with paroxysmal atrial fibrillation and rapid ventricular rate. Patient symptoms were pronounced and disabling. He was anxious and he decided to come into the hospital for further evaluation. The patient states that he had cardiac workup done in 2023 however was not followed up. 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 His most recent cardiac evaluation demonstrated moderate to severe calcification of the coronary arteries. He recently lost his brother to sudden cardiac arrest in July of 2024. Early part of 2023 he tried to establish a consultation with [facility]. He had an appointment in February which was subsequently rescheduled by [facility] cardiology April. He got frustrated called pr up clinic for an appointment [facility]. Patient at the time of my evaluation is clinically stable and reports no symptoms of chest pain shortness of breath orthopnea PND presyncope or syncope. Last night I spoke to the hospitalist and reviewed his chart. He had low magnesium levels. Was given magnesium riders and has converted to sinus rhythm and has maintained sinus rhythm since then. Anticoagulation was discussed however was not initiated due to his upcoming appointment at [facility] and possible coronary angiography. Patient to continue with aspirin at this point Meds Home Medications and Allergies Home Medications ?Medication ?Instructions ?Recorded ?Confirmed ?Type hydrochlorothiazide 25 mg tablet 25 mg PO DAILY 10/25/20 11/15/20 History losartan 50 mg tablet 50 mg PO DAILY 10/25/20 11/15/20 History propranolol 80 mg capsule,24 80 mg PO DAILY 10/25/20 11/15/20 History hr,extended release simvastatin 20 mg tablet 20 mg PO DAILY 10/25/20 11/15/20 History trazodone 100 mg tablet 100 mg PO DAILY 10/25/20 11/15/20 History venlafaxine 75 mg capsule,extended 75 mg PO DAILY 10/25/20 11/15/20 History release 24 hr Allergies Allergy/AdvReac Type Severity Reaction Status Date / Time meperidine Allergy Unknown Verified 11/15/20 07:31 Penicillins Allergy Unknown Verified 11/15/20 07:31 Review of Systems Review of Systems Narrative: All systems reviewed. Pt has intermittent palpitation. Exam Vital Signs (past 8 hours): - 03/15/25 04:00 Temperature 98 F Pulse Rate 54 L Respiratory Rate 16 Blood Pressure 119/57 L Pulse Oximetry 98 Oxygen Flow Rate 0 Oxygen Delivery Method Room Air Oxygen Flow Rate 0 Const General: cooperative, healthy appearing, comfortable and well developed Nutritional Appearance: average body habitus and well nourished [facility] Head: normal to inspection Eyes General: appearance normal, both eyes and all related structures Neck Neck: normal visual inspection and full ROM Chest Chest: normal inspection of the chest Resp Auscultation: clear to auscultation bilaterally Cardio Palpation: normal PMI Rate: regular rate Rhythm: regular rhythm Heart Sounds: S1 normal, S2 normal and murmur GI Inspection: normal to inspection Skin General: no rashes or lesions noted Neuro General: patient oriented x3 Psych Appearance: grossly normal and well kempt Objective ECG Impression: NSR with LBBB, QT 518mseconds. Labs 03/15/25 04:43 03/15/25 04:43 Labs: Laboratory Results - last 24 hr 03/14/25 03/14/25 03/14/25 12:56 15:58 17:35 WBC 6.5 RBC 4.31 L Hgb 13.9 Hct 39.0 L MCV 90.7 MCH 32.2 MCHC 35.5 RDW 13.5 Plt Count 186 Neut % (Auto) 70.4 Lymph % (Auto) 18.6 L [place] % (Auto) 9.1 Eos % (Auto) 1.3 L Baso % (Auto) 0.6 Neut # (Auto) 4600 Lymph # (Auto) 1200 [place] # (Auto) 600 Eos # (Auto) 100 Baso # (Auto) 0 Sodium 138 Potassium 3.8 Chloride 99 Carbon Dioxide 29 BUN 14 Creatinine 0.80 Estimated GFR > 60 BUN/Creatinine Ratio 17.5 Glucose 138 H Calcium 9.2 Magnesium 1.7 Total Bilirubin 0.7 AST 29 ALT 19 Alkaline Phosphatase 42 Troponin I < 0.012 0.022 NT-Pro-B Natriuret Pep 306 H Total Protein 7.5 Albumin 4.6 Globulin 2.9 Albumin/Globulin Ratio 1.6 Nasal Screen MRSA (PCR) Not detected 03/15/25 04:43 WBC 5.3 RBC 3.76 L Hgb 12.3 L Hct 34.3 L MCV 91.3 MCH 32.8 MCHC 35.9 RDW 13.6 Plt Count 129 L Neut % (Auto) 54.5 Lymph % (Auto) 32.1 [place] % (Auto) 11.1 Eos % (Auto) 2.0 Baso % (Auto) 0.3 Neut # (Auto) 2900 Lymph # (Auto) 1700 [place] # (Auto) 600 Eos # (Auto) 100 Baso # (Auto) 0 Sodium 138 Potassium 3.6 Chloride 103 Carbon Dioxide 29 BUN 12 Creatinine 0.70 Estimated GFR > 60 BUN/Creatinine Ratio 17.1 Glucose 96 Calcium 8.4 Magnesium 2.1 Total Bilirubin AST ALT Alkaline Phosphatase Troponin I NT-Pro-B Natriuret Pep Total Protein Albumin Globulin Albumin/Globulin Ratio Nasal Screen MRSA (PCR) PFSH Comment: Family history of SCD. Social History marital status: household members: spouse Tobacco & Substance Use Smoking Status: Never smoker alcohol intake: never Assessment & Plan Assessment and plan (1) Atrial fibrillation with rapid ventricular response: Status: Acute (2) Long QT interval: Status: Acute (3) Left bundle branch block: Status: Acute (4) Coronary artery disease: Qualifiers: Associated angina: without angina Coronary Disease-Associated Artery/Lesion type: resighini artery [place] vs. transplanted heart: resighini heart Qualified Code(s): I25.10 - Atherosclerotic heart disease of resighini coronary artery without angina pectoris Status: Acute (5) Hypertension: Qualifiers: Hypertension type: other secondary hypertension Qualified Code(s): I15.8 - Other secondary hypertension Status: Acute Plan Continue with current regimen of medication. Hold amiodarone at this point. Magnesium supplement 400 mg daily, aspirin 81 mg daily Patient can be discharged home. Patient given follow-up instructions to contact my office. I also advised him to send his cardiac workup copies to my office at [facility]. Thank you for allowing me to participate in the care of this patient. We will follow-up once we have more details available office cardiac workup. Time-Based Coding :: [TOTAL MINUTES] spent with patient and on the chart (including review of chart, obtaining history, exam, reviewing outside data, placing orders, documenting exam and treatment plan, and counseling patient) on [DATE].
--- NOTE | 2025-03-15 08:35 | EKG_ITS ---
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
--- NOTE | 2025-03-15 09:02 | P.DS_ITS ---
History of Present Illness History of Present Illness Date Patient Seen: 03/15/25 Chief complaint: AFIB Narrative: Chief complaint: Palpitations with atrial fibrillation rapid ventricular response and prolonged QT interval corrected and converted to sinus rhythm with magnesium History of present illness: 03/14: 69-year-old male with a history of reentrant tachycardia and AFib. He had a cardiac ablation in 2016 at [facility] with Dr. Vázquez. He was not been back since that time. He was developed what sounds like paroxysmal atrial fibrillation beginning in August of this year. He also has history of hypertension and hyperlipidemia. He presented with palpitations today for 3 hours and was found to have atrial fibrillation with RVR. He was started on amiodarone ultimately did convert to sinus rhythm. Unfortunately his QTC is quite prolonged at 562. He also notes coronary calcifications and a screening lung CT as well as a failed stress test in the last year. He was scheduled to fly to [place] on Saturday for a full cardiac evaluation this week. We discussed the pros and cons of anticoagulation, and given that he has been dealing with this for at least a half year and that there is a high probability of coronary angiogram later this week in [place], we concluded with him strongly supporting stopping anticoagulation at this point. He was in agreement with simple beta blockade to alleviate the risk of recurrent tachycardia. I spoke with Dr. Craig regarding his clinical situation, anticoagulation issues, as well as QTC. His magnesium was 1.7, this will be repleted tonight with a repeat magnesium and ECG in the morning. Hospital course: 03/15: (per Cardiology documentation) The patient states that he had cardiac workup done in 2023 however was not followed up. 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 His most recent cardiac evaluation demonstrated moderate to severe calcification of the coronary arteries. He recently lost his brother to sudden cardiac arrest in July of 2024. Early part of 2023 he tried to establish a consultation with [facility]. He had an appointment in February which was subsequently rescheduled by [facility] cardiology April. He got frustrated called me up clinic for an appointment [facility]. Patient at the time of my evaluation is clinically stable and reports no symptoms of chest pain shortness of breath orthopnea PND presyncope or syncope. Last night I spoke to the hospitalist and reviewed his chart. He had low magnesium levels. Was given magnesium riders and has converted to sinus rhythm and has maintained sinus rhythm since then. Anticoagulation was discussed however was not initiated due to his upcoming appointment at [facility] and possible coronary angiography. Patient to continue with aspirin at this point Assessment and plan: Atrial fibrillation rapid ventricular response and prolonged QT interval both corrected with IV magnesium to sinus rhythm patient will be discharged on magnesium oxide hydrochlorothiazide will be discontinued and patient cautioned that if he has diarrhea that this could precipitate 1 of these events again. Hydrochlorothiazide may also be causing low magnesium this was discontinued and to be avoided Patient was discharged in stable condition is going to catch her flight tomorrow for his appointment with the [facility] in [place] 35 minutes were involved in preparation of this discharge including [id number] evaluation physical examination discussion with consultants review of EKGs imaging telemetry and objective laboratory data and past medical history and medication list as well as prescriptions Discharge Providers Provider Date of admission: 03/14/25 16:14 Discharge Date: 03/15/25 Primary care physician: Javed Sinha MD Consults: 03/14/25 16:08 Consult to Cardiology Stat Comment: Consulting Provider: Que Craig Reason for consultation: a fib Has provider been notified: Yes Discharge provider: Ori Chadwick MD Exam Vital Signs (past 8 hours): - 03/15/25 04:00 Temperature 98 F Pulse Rate 54 L Respiratory Rate 16 Blood Pressure 119/57 L Pulse Oximetry 98 Oxygen Flow Rate 0 Oxygen Delivery Method Room Air Oxygen Flow Rate 0 Objective Labs 03/15/25 04:43 03/15/25 04:43 Labs: Laboratory Results - last 24 hr 03/14/25 03/14/25 03/14/25 12:56 15:58 17:35 WBC 6.5 RBC 4.31 L Hgb 13.9 Hct 39.0 L MCV 90.7 MCH 32.2 MCHC 35.5 RDW 13.5 Plt Count 186 Neut % (Auto) 70.4 Lymph % (Auto) 18.6 L Upson % (Auto) 9.1 Eos % (Auto) 1.3 L Baso % (Auto) 0.6 Neut # (Auto) 4600 Lymph # (Auto) 1200 Upson # (Auto) 600 Eos # (Auto) 100 Baso # (Auto) 0 Sodium 138 Potassium 3.8 Chloride 99 Carbon Dioxide 29 BUN 14 Creatinine 0.80 Estimated GFR > 60 BUN/Creatinine Ratio 17.5 Glucose 138 H Calcium 9.2 Magnesium 1.7 Total Bilirubin 0.7 AST 29 ALT 19 Alkaline Phosphatase 42 Troponin I < 0.012 0.022 NT-Pro-B Natriuret Pep 306 H Total Protein 7.5 Albumin 4.6 Globulin 2.9 Albumin/Globulin Ratio 1.6 Nasal Screen MRSA (PCR) Not detected 03/15/25 04:43 WBC 5.3 RBC 3.76 L Hgb 12.3 L Hct 34.3 L MCV 91.3 MCH 32.8 MCHC 35.9 RDW 13.6 Plt Count 129 L Neut % (Auto) 54.5 Lymph % (Auto) 32.1 Upson % (Auto) 11.1 Eos % (Auto) 2.0 Baso % (Auto) 0.3 Neut # (Auto) 2900 Lymph # (Auto) 1700 Upson # (Auto) 600 Eos # (Auto) 100 Baso # (Auto) 0 Sodium 138 Potassium 3.6 Chloride 103 Carbon Dioxide 29 BUN 12 Creatinine 0.70 Estimated GFR > 60 BUN/Creatinine Ratio 17.1 Glucose 96 Calcium 8.4 Magnesium 2.1 Total Bilirubin AST ALT Alkaline Phosphatase Troponin I NT-Pro-B Natriuret Pep Total Protein Albumin Globulin Albumin/Globulin Ratio Nasal Screen MRSA (PCR) [facility] Social History marital status: household members: spouse Smoking Status: Never smoker alcohol intake: never Discharge Plan Discharge orders & Medications Discharge Orders: Discharge (Order); Ordered 03/15/25 Ordered By: Ori Chadwick Prescriptions: New magnesium oxide 400 mg magnesium capsule 400 mg PO BID Qty: 60 0RF Continued propranolol 80 mg capsule,extended release 24 hr 80 mg PO DAILY losartan 50 mg tablet 50 mg PO DAILY simvastatin 20 mg tablet 20 mg PO DAILY venlafaxine 75 mg capsule,extended release 24hr 75 mg PO DAILY trazodone 100 mg tablet 100 mg PO DAILY Discontinued hydrochlorothiazide 25 mg tablet 25 mg PO DAILY Follow up/Referrals: Javed Sinha MD [Primary Care Provider, [facility]] Discharge Data Primary Care Provider: Javed Sinha
--- NOTE | 2025-03-15 09:55 | PC.NURSE ---
Discharge: pt seen by hospitalist Dr. Chadwick and doctor assistant Dr. Craig. Pt agreeable with discharge plan. Already has scheduled appt with [place] follow[place]. Medication education provided, stroke s/s provided to pt and spouse. Pt A&Ox4, spouse at bedside. IV's continued, telemetrey removed. Pt wheeled via w/c to private vehicle at approximately 0950.
== END 2025-03-15 09:50 | disposition home or self-care (01) ==
LOC: ED 16:13 → AC 16:16 → ICU 03-15 08:41 → AC 03-15 11:36 → ICU 03-15 11:36
PROVIDERS: Admitting Provider Hospitalist; Emergency Provider Emergency Medicine; PCP Family Medicine; Referring Provider Emergency Medicine; Visit Provider Hospitalist
DX: I48.0 Paroxysmal atrial fibrillation (principal); I44.7 Left bundle-branch block, unspecified; I10 Essential (primary) hypertension; E78.5 Hyperlipidemia, unspecified; I25.10 Atherosclerotic heart disease of native coronary artery without angina pectoris
CPT/HCPCS: 36415; 71045; 80048; 80053; 83735; 83880; 84484; 85025; 87797; 93005; 96365; 96366; 96367; 99284; G0378; J0282; J3475